=== PATIENT | female | born 1970 | race Caucasian/White ===

== ENCOUNTER → 2017-01-30 | Outpatient (CLI) | payer BC ==
[~2017-01-30] MED LIST: AMBIEN 5MG TAB5 MG PO; AUGMENTIN1 TA1 PO; MEDROL 4MG. DOSE4 MG PO; TRAMADOL50 M1 PO
--- NOTE | 2017-01-30 15:37 | RADIOLOGY REPORT PS360 ---
EXAM: LUMBAR SPINE 5 VIEWS HISTORY: ACUTE LBP WITH BILAT HIP PAIN ORDERING PHYSICIAN: Orville Ratliff MD PATIENT AGE: 46 years COMPARISON: None FINDINGS: Normal alignment. No fracture or dislocation. No lytic or blastic change. No significant degenerative change. The disc spaces are preserved. IMPRESSION: Negative lumbar spine
--- NOTE | 2017-01-30 15:38 | RADIOLOGY REPORT PS360 ---
HIP RT 2-3V W/PELVIS IF PERFOR HISTORY: ACUTE LBP WITH BILAT HIP PAIN ORDERING PHYSICIAN: Orville Ratliff MD PATIENT AGE: 46 years COMPARISON: None FINDINGS: No fracture or dislocation is evident. No significant degenerative change. No lytic or blastic change. Unremarkable soft tissues. There is a small os acetabulum laterally as an incidental finding. The hip joint space is well-preserved. IMPRESSION: Negative right hip
--- NOTE | 2017-01-30 15:38 | RADIOLOGY REPORT PS360 ---
HIP LT 2-3V W/PELVIS IF PERFOR HISTORY: ACUTE LBP WITH BILAT HIP PAIN ORDERING PHYSICIAN: Orville Ratliff MD PATIENT AGE: 46 years COMPARISON: None FINDINGS: No fracture or dislocation is evident. No significant degenerative change. No lytic or blastic change. Unremarkable soft tissues IMPRESSION: Negative hip
== END ==
LOC: RAD 14:38
DX: M54.5 Low back pain (principal); M25.552 Pain in left hip; M25.551 Pain in right hip